=== PATIENT | female | born 1990 | race Caucasian/White ===

== ENCOUNTER 2018-02-11 21:16 | Emergency (ER) | payer MEDICAID ==
--- NOTE | 2018-02-11 22:36 | EDM.PDOCBH ---
ED HPI GENERAL MEDICAL PROBLEM - General Chief Complaint: Behavioral/Psych Stated Complaint: MEDICAL [facility]IA [facility] Time Seen by Provider: 02/11/18 22:33 Source of Information: Reports: Patient, Police, RN Notes Reviewed History Limitations: Reports: Altered Mental Status - History of Present Illness INITIAL COMMENTS - FREE TEXT/NARRATIVE: Unknown age female unknown name brought into emergency department for evaluation by law enforcement, she is compliant will follow commands however will not provide age or name. Was found by law enforcement trying to get into vehicles at one of the local establishments. It is unclear if this is a mental health issue or she has possibly taken a medications or street drugs. - Related Data Allergies Allergy/AdvReac Type Severity Reaction Status Date / Time Unable to Assess Allergy Unverified 02/11/18 22:00 Home Meds: Home Meds . [Unable to Verify Home Med List] 02/11/18 [History] Past Medical History - Past Health History Medical/Surgical History: Denies Medical/Surgical History Social & Family History - Tobacco Use Smoking Status *Q: Unknown Ever Smoked ED ROS GENERAL - Review of Systems Review Of Systems: Unable To Obtain ED EXAM, BEHAVIORAL HEALTH - Physical Exam Exam: See Below Exam Limited By: Altered Mental Status General Appearance: Alert, No Apparent Distress Respiratory/Chest: No Respiratory Distress, Lungs Clear, Normal Breath Sounds, No Accessory Muscle Use Cardiovascular: Regular Rate, Rhythm, No Murmur COURSE, BEHAVIORAL HEALTH COMP - Course Vital Signs: Last Vital Signs Temp 99.7 F 02/11/18 22:06 Pulse 150 H 02/11/18 22:06 Resp 18 02/11/18 22:06 BP 99/75 02/11/18 22:06 Pulse Ox 95 02/11/18 22:06 Re-Assessment/Re-Exam: She states she did not want any medical treatment or assessment she thanked us multiple times for our help law enforcement had no charges pending on her she asked if she could leave Departure - Departure Time of Disposition: 22:57 Disposition: Against Medical Advice 07 Condition: Poor Clinical Impression: Acute confusion - Discharge Information Referrals: PCP,None [Primary Care Provider] - Forms: ED Department Discharge
== END 2018-02-11 23:28 | disposition home or self-care (01) ==
LOC: JP.ED 21:16 → EDBD 21:16 → JP.ED 23:28
DX: R41.0 Disorientation, unspecified (principal)
CPT/HCPCS: 99282; 99285